=== PATIENT | female | born 1935 | race Caucasian/White ===

== ENCOUNTER 2020-09-09 10:25 | Inpatient (IN) | payer MEDICARE, BC ==
[~2020-09-09] VITALS: Ht 165.1 cm; Wt 75.0 kg
[2020-09-09 11:03] VITALS: BP 177/74
[2020-09-09 11:05] LABS: BASOPHILS 0.9 % (0-2); EOSINOPHILS 1.6 % (0-7); HEMATOCRIT 44.3 % (36.0-48.0); HEMOGLOBIN 14.7 g/dL (12-16); LYMPHOCYTES 23.5 % (15-50); MCH 29.9 pg (26.0-34.0); MCHC 33.2 g/dL (31.0-37.0); MCV 89.9 fL (80.0-100.0); MEAN PLATELET VOLUME 9.3 fL (7.4-10.4); MONOCYTES 9.4 % (2-11); NEUTROPHILS 64.6 % (40-80); PLATELET COUNT 216 10x3/uL (130-400); RBC 4.93 10x6/uL (4.00-5.40); RDW 13.8 % (11.5-14.5); WBC 7.1 10x3/uL (4.8-10.8)
[2020-09-09 11:11] LABS: CALC OSMOLALITY 292 mosm/kg (275-300); CALCIUM 9.5 mg/dL (8.5-10.1); CARBON DIOXIDE 26.6 mmol/L (21.0-32.0); CHLORIDE - SERUM 109 mmol/L (98-107); CREATININE - SERUM 1.2 mg/dL (0.6-1.3); GLUCOSE 103 mg/dL (74-106); SODIUM 145 mmol/L (136-145); UREA NITROGEN 25 mg/dL (7-18); eGFR NON AFRICAN AMERICAN 45 mL/min (90-120)
[2020-09-09 11:13] LABS: APTT 24.6 SECONDS (22.8-39.4); INR 1.04 (0.85-1.17); PROTIME 12.5 SECONDS (11.6-15.0)
[2020-09-09 11:28] LABS: ALBUMIN 3.6 g/dL (3.4-5.0); ALKALINE PHOSPHATASE 74 U/L (30-120); ALT (SGPT) 25 U/L (10-68); BILIRUBIN - TOTAL 0.52 mg/dL (0.2-1.3); CKMB 0.8 U/L (0.0-3.6); CREATINE KINASE 79 UL (21-215); PROTEIN - SERUM 6.9 g/dL (6.4-8.2); THYROID STIMULATING HORMONE 1.13 uIU/mL (0.36-3.74); TROPONIN-I < 0.017 ng/mL (0.000-0.060)
[2020-09-09 11:55] LABS: CHOL - HDL RATIO 4.4 ratio (2.3-4.1); LDL-HDL RATIO 2.9 ratio (1.5-3.5)
--- NOTE | 2020-09-09 13:04 | NUR ---
DR. CANCHOLA PAGED FOR ANTI-ANXIETY MEDICATION FOR MRI. ATIVAN 1MG IV ORDERED.
--- NOTE | 2020-09-09 13:46 | NUR ---
TO MRI VIA STRETCHER.
--- NOTE | 2020-09-09 15:32 | NUR ---
DR. ANGELES AT BEDSIDE.
--- NOTE | 2020-09-09 15:53 | NUR ---
PT AND FAMILY TO ROOM. SITUATED COMFORTABLY. ORIENTED TO ROOM AND UNIT. DENIES ANY NEEDS AT THIS TIME. BED IN LOWEST POSITION, BED RAILS X2, CALL LIGHT WITHIN REAcH. WILL CONTINUE POC.
[2020-09-09 16:35] VITALS: BP 164/65; Ht 165.1 cm; Wt 75.0 kg
--- NOTE | 2020-09-09 17:54 | NUR ---
SUPINE IN BED, EYES CLOSED. BREATHING EVEN AND NON LABORED. NO S/S OF DISTRESS NOTED AT THIS TIME. BED IN LOWEST POSITION, BED RAILS X2, CALL LIGHT WITHIN REACH, REINALDO MAT ON BED. FAMILY AT BEDSIDE. WILL CONTINUE POC.
[2020-09-09 18:15] LABS: CKMB 0.8 U/L (0.0-3.6); CREATINE KINASE 70 UL (21-215)
[2020-09-09 18:17] LABS: TROPONIN-I < 0.017 ng/mL (0.000-0.060)
[2020-09-09 21:03] VITALS: BP 159/74
[2020-09-10] VITALS (7 sets, daily range): BP systolic 128–173; BP diastolic 50–69
[2020-09-10 01:51] LABS: CKMB 0.7 U/L (0.0-3.6); CREATINE KINASE 61 UL (21-215); TROPONIN-I < 0.017 ng/mL (0.000-0.060)
--- NOTE | 2020-09-10 02:57 | NUR ---
I have reviewed this patient and I concur with the Shift Assessment completed by the Licensed Practical Nurse today this shift.
[2020-09-10] MEDS ORDERED: LEXAPRO20 MG PO (03:18)
[2020-09-10 06:57] LABS: BASOPHILS 0.9 % (0-2); EOSINOPHILS 2.7 % (0-7); HEMATOCRIT 39.2 % (36.0-48.0); HEMOGLOBIN 13.1 g/dL (12-16); LYMPHOCYTES 30.4 % (15-50); MCH 30.1 pg (26.0-34.0); MCHC 33.5 g/dL (31.0-37.0); MCV 89.7 fL (80.0-100.0); MEAN PLATELET VOLUME 9.5 fL (7.4-10.4); PLATELET COUNT 195 10x3/uL (130-400); RBC 4.37 10x6/uL (4.00-5.40); RDW 13.7 % (11.5-14.5); WBC 6.2 10x3/uL (4.8-10.8)
[2020-09-10 07:14] LABS: ALBUMIN 3.1 g/dL (3.4-5.0); ANION GAP 10.7 mmol/L (8-16); BILIRUBIN - TOTAL 0.51 mg/dL (0.2-1.3); CALCIUM 9.3 mg/dL (8.5-10.1); CARBON DIOXIDE 26.2 mmol/L (21.0-32.0); CREATININE - SERUM 1.1 mg/dL (0.6-1.3); POTASSIUM - SERUM 3.9 mmol/L (3.5-5.1)
--- NOTE | 2020-09-10 10:15 | NUR ---
ADMINISTERED SCHEDULED MEDICATIONS, PATIENT IS WALKING WITH PHYSICAL THERAPY AT THIS TIME, SPOUSE AT BEDSIDE, CL IN REACH CONTINUE WITH PLAN OF CARE
--- NOTE | 2020-09-10 14:34 | NUR ---
PATIENT DAUGHTER AND PATIENT INQUIRED ON PATIENT HOME MEDICATIONS AND WHEN THY WILL BE RESTARTED, PAT MED REC NOT COMPLETED, ASKED PATIENT WHAT SHE TAKES, BOTH PATIENT AND DAUGHTER ARE ABLE TO GIVE A FEW MEDICATIONS BUT UNABLE TO TELL ME THE DOSES, CALLED THE PHARMACY TO GET DOSESAND PHARMACY IS CLOSED TODAY AND FRIDAY, UNABLE TO OBTAIN. CONTINUE WITH PLAN OF CARE
[2020-09-10] MEDS ORDERED: COZAAR100 MG PO (16:12)
[2020-09-10] MEDS ORDERED: LIPITOR20 MG PO (16:14)
[2020-09-10] MEDS ORDERED: LIPITOR40 MG PO (16:14)
--- NOTE | 2020-09-10 18:00 | NUR ---
I have reviewed this patient and I concur with the Shift Assessment completed by the Licensed Practical Nurse today this shift.
[2020-09-11] VITALS: BP 141/56
--- NOTE | 2020-09-11 01:45 | NUR ---
PATIENT DENIES PAIN, VOICED NO CONCERNS, SHE IS CURRENTLY RESTING IN BED WITH HER EYES CLOSED.
[2020-09-11 04:00] VITALS: BP 145/45
--- NOTE | 2020-09-11 07:15 | NUR ---
REC'D IN BED WITH EYES CLOSED EASILY TO AROUSED WHEN NAME IS CALLED. RESP EVEN AND UNLABORED WITH NO DISTRESS NOTED. CAN EXPRESS NEEDS AND WANTS. NO C/O NOTED OR VOICED AT THIS TIME. ASSESSMENT COMPLETED. C/L IN REACH AT BEDSIDE.
[2020-09-11 10:02] VITALS: BP 160/55
--- NOTE | 2020-09-11 11:06 | NUR ---
I have reviewed this patient and I concur with the Shift Assessment completed by the Licensed Practical Nurse today this shift.
[2020-09-11 11:13] LABS: BASOPHILS 1.2 % (0-2); EOSINOPHILS 2.7 % (0-7); HEMATOCRIT 41.2 % (36.0-48.0); HEMOGLOBIN 13.4 g/dL (12-16); LYMPHOCYTES 23.9 % (15-50); MCH 29.5 pg (26.0-34.0); MCHC 32.6 g/dL (31.0-37.0); MCV 90.5 fL (80.0-100.0); MEAN PLATELET VOLUME 9.1 fL (7.4-10.4); MONOCYTES 9.1 % (2-11); NEUTROPHILS 63.1 % (40-80); PLATELET COUNT 205 10x3/uL (130-400); RBC 4.56 10x6/uL (4.00-5.40); RDW 13.8 % (11.5-14.5); WBC 6.5 10x3/uL (4.8-10.8)
[2020-09-11 11:27] LABS: ALBUMIN 3.3 g/dL (3.4-5.0); ANION GAP 11.1 mmol/L (8-16); BILIRUBIN - TOTAL 0.41 mg/dL (0.2-1.3); CALCIUM 9.3 mg/dL (8.5-10.1); CARBON DIOXIDE 26.8 mmol/L (21.0-32.0); CREATININE - SERUM 1.2 mg/dL (0.6-1.3); POTASSIUM - SERUM 3.9 mmol/L (3.5-5.1); PROTEIN - SERUM 6.4 g/dL (6.4-8.2)
[2020-09-11 12:26] LABS: PLATELET ESTIMATE NORMAL
--- NOTE | 2020-09-11 13:17 | NUR ---
THANK YOU FOR THIS REFERRAL. NOTIFIED [employer] VIA VOICEMAIL THAT PRESCREEN IS IN PROCESS. -VANNESSA DOE LPN, CLINICAL LIAISON
[2020-09-11 13:32] VITALS: BP 129/57
[2020-09-11 20:00] VITALS: BP 144/61
--- NOTE | 2020-09-12 02:42 | NUR ---
PATIENT AWAKENS WHEN YOU CALL HER NAME, SHE DENIES PAIN, VOICED NO CONCERNS, SHE IS CURRENTLY RSTING IN BED WITH HER EYES CLOSED.
[2020-09-12 04:00] VITALS: BP 145/54
[2020-09-12 06:31] LABS: BASOPHILS 0.9 % (0-2); EOSINOPHILS 3.4 % (0-7); HEMATOCRIT 39.8 % (36.0-48.0); HEMOGLOBIN 13.2 g/dL (12-16); LYMPHOCYTES 30.3 % (15-50); MCHC 33.3 g/dL (31.0-37.0); MCV 90.3 fL (80.0-100.0); MEAN PLATELET VOLUME 9.8 fL (7.4-10.4); MONOCYTES 8.1 % (2-11); NEUTROPHILS 57.3 % (40-80); PLATELET COUNT 202 10x3/uL (130-400); RBC 4.41 10x6/uL (4.00-5.40); RDW 13.7 % (11.5-14.5); WBC 7.2 10x3/uL (4.8-10.8)
[2020-09-12 06:48] LABS: ALBUMIN 3.1 g/dL (3.4-5.0); ANION GAP 10.4 mmol/L (8-16); BILIRUBIN - TOTAL 0.29 mg/dL (0.2-1.3); CALCIUM 9.3 mg/dL (8.5-10.1); CARBON DIOXIDE 26.6 mmol/L (21.0-32.0); CREATININE - SERUM 1.3 mg/dL (0.6-1.3); PROTEIN - SERUM 6.2 g/dL (6.4-8.2)
--- NOTE | 2020-09-12 08:38 | NUR ---
I AM UNSURE OF WHAT THE CURRENT STATUS IS WITH THIS PATIENT. THERE IS A CHART PUT TOGETHER FOR ADMISSION TO INPATIENT REHAB, YET SHE IS STILL ON THE ACUTE FLOOR. 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 LAUREN SAVAGE RN CLINICAL LIAISON, INPATIENT REHAB.
[2020-09-12 08:49] VITALS: BP 169/53
[2020-09-12 11:56] VITALS: BP 161/97
[2020-09-12] MEDS ORDERED: PLAVIX75 MG PO (12:59)
[2020-09-12] MEDS ORDERED: ASPIRIN81 MG PO (12:59)
--- NOTE | 2020-09-13 14:27 | EC ---
PATIENT:CARLY KIM DATE OF SERVICE: 09/10/20 SEX: F MEDICAL RECORD: [id number] DATE OF : 35 LOCATION:[id number] AGE OF PATIENT: 84 ADMISSION DATE: 09/10/20 REFERRING PHYSICIAN: INTERPRETING PHYSICIAN: SHELBIE ESCOBAR MD ECHOCARDIOGRAM REPORT ECHO CHARGES 4 ECHO COMPLETE Date: 09/10/20 CLINICAL DIAGNOSIS: CVA VS TIA ASSESS FOR CLOTS ECHOCARDIOGRAPHIC MEASUREMENTS (adult normal given) AC root (d.<3.7cm) 3.1 cm LV Septum d (<1.2 cm> 1.2 cm Valve Excursion 1.3 cm LV Septum (systole) 1.5 cm Left Atria (s.<4.0cm> 3.5 cm LVPW d(<1.2cm) 1.4 cm RV (d.<2.3cm) 3.3 cm LVPW (sytole) 1.7 cm LV diastole(<5.6CM) 5.1 cm MV E-F(>70mm/sec) cm LV systole 3.3 cm LVOT Diameter 1.7 cm MV exc.(>10mm) 1.61 cm Est.ejection fraction (50-75%) % DOPPLER: LVIT cm/sec A 108.0cm/sec E 76.0 cm/sec LA cm/sec RVSP 28 mmHg LVOT 117 cm/sec AOP1/2T 653 m/s Asc. Ao 147 cm/sec RVOT 122 cm/sec RA cm/sec PA 148 cm/sec AV Gradient Peak 8.59 mmHg AV Mean 4.43 mmHg AV Area 1.7 cm MV Gradient Peak 5.77 mmHg MV Mean 1.73 mmHg MV Area cm COMMENTS: [employer] Truck Driver: 2 AV ORR Visitor Services Coordinator: 3 Dr. Parry TAPE# PACS Pericardial Effusion N DATE OF SERVICE: Adequate 2D, color flow imaging, spectral Doppler, and M-Mode. FINDINGS: LVH is present. Mild LV internal dimensions are normal. Wall motion is normal. EF is greater than or equal to 55%. Aortic valve is tricuspid. No evidence of stenosis by Doppler interrogation. There is mild AI by color flow imaging. Left atrium is normal at 3.5 cm. Mitral valve shows no prolapse. Trace MR. Right-sided chambers are grossly normal. Mild TR. No evidence of thrombus in all 4 cardiac chambers. ECHOCARDIOGRAM REPORT [id number] JULIOJEREMIAS NathJOANA Caballero TRANSINT:[id number] Voice Confirmation ID: [id number] DOCUMENT ID: [id number] SHELBIE ESCOBAR MD at 1427 CC: [id number] DICTATION DATE: 09/11/20924 COMPLEX CASE MANAGER: 09/11/20 1027 DIS IN 09/12/20 [place] [id number]
== END 2020-09-12 13:35 | DRG 65 ==
LOC: D.ER 10:25 → D.MS 11:27 → OBSVTIME 11:27 → D.MS 13:54
PROVIDERS: Emergency Medicine; Family Medicine; ADMIT Family Medicine; ATTEND Family Medicine
DX: I63.22 Cerebral infarction due to unspecified occlusion or stenosis of basilar artery (principal); G81.94 Hemiplegia, unspecified affecting left nondominant side; G72.81 Critical illness myopathy; R47.1 Dysarthria and anarthria; R42 Dizziness and giddiness; R47.01 Aphasia; F41.9 Anxiety disorder, unspecified; D32.0 Benign neoplasm of cerebral meninges; G31.1 Senile degeneration of brain, not elsewhere classified

== ENCOUNTER 2020-09-12 14:26 | Inpatient (IN) | payer MEDICARE, BC ==
[~2020-09-12] VITALS: Ht 165.1 cm; Wt 74.8 kg
[~2020-09-12 14:26] MED LIST: ASPIRIN81 MG PO; COZAAR100 MG PO; LEXAPRO20 MG PO; LIPITOR20 MG PO; LIPITOR40 MG PO; PLAVIX75 MG PO
--- NOTE | 2020-09-12 14:44 | NUR ---
PATIENT ADMITTED TO [facility] FROM ACUTE FLOOR. HER PCP IS DR. MANCUSO. AT THIS TIME DISCHARGE PLANS ARE UNCERTAIN. WILL CONTINUE TO FOLLOW WITH PATIENT AND WILL ASSIST WITH NEEDS.
[2020-09-12 14:58] VITALS: BP 181/65; BMI 27.5
--- NOTE | 2020-09-12 17:56 | NUR ---
ADMIT TO REHAB FROM ACUTE CARE. IS CONFUSED BUT COOPERATIVE. DENIES PAIN.
--- NOTE | 2020-09-12 19:05 | NUR ---
ROUNDS MADE, PT WATCHING TV, INFORMED PT THAT I WILL BE BACK SHORTLY, DENIES NEEDS AT THIS TIME
--- NOTE | 2020-09-12 20:33 | NUR ---
PT WATCHING, DENIES NEEDS AT THIS TIME, FALL PRECAUTIONS IN PLACE
--- NOTE | 2020-09-12 21:20 | NUR ---
ASSESSMENT PER FLOW SHEET, PT UP TO BR WITH ASSISTANCE PER TYRESE PATTERSON RN, PT VOIDED, CLEAN GOWN APPLIED, PT BACK TO BED, ASSESSMENT PER FLOW SHEET, PT DENIES NEEDS OR PAIN AT THIS TIME, FALL PRECAUTIONS IN PLACE
[2020-09-12 21:31] VITALS: BP 161/64
--- NOTE | 2020-09-12 22:38 | NUR ---
PT RESTING WITH EYES CLOSED, RESP QUIET, NO DISTRESS NOTED, LEFT UNDISTURBED AT THIS TIME
--- NOTE | 2020-09-13 00:18 | NUR ---
PT RESTING WITH EYES CLOSED, RESP QUIET, NO DISTRESS NOTED, LEFT UNDISTURBED AT THIS TIME
--- NOTE | 2020-09-13 02:30 | NUR ---
PT RESTING WITH EYES CLOSED, RESP QUIET, NO DISTRESS NOTED, LEFT UNDISTURBED AT THIS TIME
--- NOTE | 2020-09-13 04:33 | NUR ---
PT LONGWALL SHEARER OPERATOR LIGHT, PT UP TO BR PER TYRESE PATTERSON RN, PT VOIDED WITH NO DIFFICULTY, BACK TO BED, FALL PRECAUTIONS IN PLACE
[2020-09-13 07:24] VITALS: BP 170/58
[2020-09-13 13:22] VITALS: Ht 165.1 cm; Wt 74.8 kg
--- NOTE | 2020-09-13 15:42 | NUR ---
CARE TEAM MEETING: PATIENT IS NEW TO THE UNIT AND WILL BE RA AT NEXT MEETING. WILL CONTINUE TO FOLLOW WITH PATIENT.
[2020-09-13 20:17] VITALS: BP 147/55
--- NOTE | 2020-09-13 22:34 | NUR ---
UP IN CHAIR EARLY IN SHIFT, TANA WELL, TRANSFER X1 ASSIST, CONT TO MONITOR ORIENTATION
--- NOTE | 2020-09-14 03:30 | NUR ---
UP TO BATHROOM, GAIT UNSTEADY, CONT TO MONITOR
[2020-09-14 08:07] VITALS: BP 106/49
--- NOTE | 2020-09-14 19:44 | RHP ---
PATIENT: CARLY KIM MEDICAL RECORD: [id number] ACCOUNT: [id number] LOCATION:[facility]1113 : 35 ADMISSION DATE: 09/12/20 REHABILITATION HISTORY AND PHYSICAL EXAMINATION POST ADMISSION PHYSICIAN EXAMINATION ADMITTING DIAGNOSIS: Cerebrovascular accident. 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 She presented to the ED on 09/09 at the urging of her hairdresser after she presented for hair appointment with complaints of 2-3 day history of headache, dizziness, left-sided weakness and difficulty speaking. The patient had some nausea and vomiting associated with this as well. MRI was conclusive for a CVA. 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 Prior to 09/09, she lived at home alone with her and was functioning independently at home without the use of any type of mortgage loan assistant devices. The daughter does report that she did fall over a month ago, tripping over her sister's dog. The patient reports her shoulder has been somewhat sore since then. She says she has had no other falls. She does complain of dizziness so often. 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 The patient wears glasses and is hard of hearing. Physical therapy reports that the patient's balance is poor and that she is very high risk for fall and has had some confusion. Physical therapy also recommends inpatient rehab. Barriers to her discharge include safety awareness, the fact that she is a high fall risk. She has got significant ADL deficits. She is eager to participate in therapy and hopefully return back to home. 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 PAST MEDICAL HISTORY: Significant for anxiety, postmenopause. PAST SURGICAL HISTORY: Includes hysterectomy, breast reduction. ALLERGIES: SULFA. CURRENT MEDICATIONS: Include Cozaar 100 mg daily, Lexapro 10 mg daily, Plavix 75 mg daily, atorvastatin 20 mg daily, aspirin chewable 81 mg daily, and MiraLax 17 grams in 8 ounces of water once daily. HABITS: No alcohol or tobacco use. FAMILY HISTORY: Noncontributory. SOCIAL HISTORY: The patient hopes to return back home and get back to her prior level of functioning. REVIEW OF SYSTEMS: GENERAL: She does complain of weakness, especially on the left side. HEENT: Denies cold, cough, congestion. CARDIOVASCULAR: Denies any chest pain. HISTORY AND PHYSICAL [id number] JULIOCARLY Nath PHYSICAL EXAMINATION: VITAL SIGNS: Stable, afebrile. GENERAL: Elderly female in no acute distress, alert upon exam. HEENT: Normocephalic and atraumatic. Mucosa moist. NECK: Supple with no lymphadenopathy. LUNGS: Clear in upper ny. HEART: Regular rate and rhythm. She does have a holosystolic murmur. ABDOMEN: Soft, benign, nondistended. Positive bowel sounds times 4. EXTREMITIES: No clubbing, cyanosis or edema. NEUROLOGIC: Consistent with CVA with some noted problems with speech and also weakness. LABORATORY DATA: Her white count 7.2, H&H of 13 and 39, and platelet count of 202. Her chemistry shows sodium 143, potassium 4.0, BUN and creatinine of 28 and 1.3 and blood sugar is noted to be 104. ASSESSMENT: This is an 84-year-old female patient admitted to rehab with a working diagnosis of cerebrovascular accident. The patient has potential to make improvements. We instituted the following multidisciplinary therapies including, but not limited to physical, occupational, respiratory, speech, nutritional services, prosthetics and orthotics. Given her complex medical condition and risks for more complications, rehabilitation services cannot be provided at a low level of care such as intermediate facility. PLAN: Admit to [facility] for inpatient therapy to include the following disciplines: A. Physical therapy to improve gait, all transfer skills and bed mobility to a modified independent level. B. Occupational therapy to improve activities of daily living. C. Case management to help with discharge planning and placement options. D. Nutrition to assist with nutritional needs. E. Rehabilitation nursing to assist in monitoring the patient's underlying medical conditions and to assist with any type of bowel or bladder management. 1. The patient's current medication and medical care will be continued. 2. Will be placed on standard fall precautions. 3. The patient's estimated length of stay approximately 7-10 days. We will discuss this patient during care team staff today at noon. TRANSINT:[id number] Voice Confirmation ID: [id number] DOCUMENT ID: [id number] PAVEL notes whether there has been none or any medical/functional change since admission: - No change since preadmission screen. PAVEL attests patient continues to be appropriate for IRF: - Continues to be appropriate. HISTORY AND PHYSICAL [id number] CARLY KIM,MADISYN JOSE MD at 1944 CC: [id number] DICTATION DATE: 09/13/20 1047 TRIMMING CASER: 09/13/20 1114 ADM IN [place] [id number] [place] [address]
[2020-09-14 19:57] VITALS: BP 134/56
--- NOTE | 2020-09-14 20:13 | NUR ---
AWAKE AND ALERT. RESTING IN BED TEXTING ON PHONE. SOME CONFUSION NOTED. RESPIRATIONS UNLABORED. SQUAD LEADER ON. NO DISTRESS NOTED. CALL LIGHT IN REACH.
--- NOTE | 2020-09-15 05:38 | NUR ---
QUIET HOURS. NO ACUTE CHANGES IN CONDITION THIS SHIFT. RESTING IN BED WITH NO DISTRESS NOTED.
[2020-09-15 07:11] LABS: BASOPHILS 0.7 % (0-2); EOSINOPHILS 3.2 % (0-7); HEMATOCRIT 38.9 % (36.0-48.0); HEMOGLOBIN 12.9 g/dL (12-16); LYMPHOCYTES 27.4 % (15-50); MCHC 33.2 g/dL (31.0-37.0); MCV 90.5 fL (80.0-100.0); MEAN PLATELET VOLUME 9.9 fL (7.4-10.4); MONOCYTES 9.4 % (2-11); NEUTROPHILS 59.3 % (40-80); PLATELET COUNT 195 10x3/uL (130-400); RDW 13.6 % (11.5-14.5); WBC 7.5 10x3/uL (4.8-10.8)
[2020-09-15 07:17] LABS: ANION GAP 11.6 mmol/L (8-16); CALCIUM 9.3 mg/dL (8.5-10.1); CARBON DIOXIDE 24.6 mmol/L (21.0-32.0); CREATININE - SERUM 1.3 mg/dL (0.6-1.3); POTASSIUM - SERUM 4.2 mmol/L (3.5-5.1)
[2020-09-15 08:57] VITALS: BP 155/79
--- NOTE | 2020-09-15 15:39 | NUR ---
PATIENT DISCHARGING HOME WITH FAMILY IN AM . [facility] WILL PROVIDE THERAPY AT HOME. NO NEW DME NEEDED AT THIS TIME.PRESLEY SIGNED, IMM SERVED AND EXPLAINED, ONE GIVEN TO PATIENT AND ONE FILED IN CHART. DR. MANCUSO/JEANETTE 09/22/20 @ 2:15, DR. MERLINE ANGELES OFFICE TO CALL PATIENT WITH AN APPOINTMENT. COMPARE DATA REVIEWED, PATIENT AND DAUGHTER VOICED UNDERSTANDING. DISCHARGE INSTRUCTIONS FAXED TO PCP, HOME HEALTH AND REVIEWED WITH PATIENT AND DAUGHTER.
--- NOTE | 2020-09-15 15:53 | NUR ---
SITTING IN WC IN ROOM. BED AND CHAIR ALARM IN USE. SHE REMAINS VERY CONFUSED. VERY POOR RECALL FOR RECENT AND LONG TIME EVENTS. PLEASANT AND COOPERATIVE TO SIMPLE REQUESTS. CALL LIGHT IN REACH
--- NOTE | 2020-09-15 20:00 | NUR ---
PATIENT RECEIVED SITTING UP IN WHEELCHAIR. ASSESSMENT & VITAL SIGNS DONE. NO C/O PAIN OR DISTRESS. PLEASANTLY CONFUSED. ALARM ON WHEELCHAIR & LOW BED ON. CALL LIGHT WITHIN REACH, PATIENT REMINDED TO USE FOR HELP. WILL CONTINUE TO MONITOR.
[2020-09-15 20:07] VITALS: BP 137/51
--- NOTE | 2020-09-16 02:30 | NUR ---
PATIENT ALARM SOUNDING. PATIENT TRANSFERRED TO WHEELCHAIR BY SELF. NIGHT TECH IN ROOM, TURED ALARM OFF. PATIENT HAD VOID ONLY. RETURNED TO LOW BED WITH TECH. ALARM ON. BED LOW. WILL CONTINUE TO MONITOR.
--- NOTE | 2020-09-16 05:24 | NUR ---
I have reviewed this patient and I concur with the Shift Assessment completed by the Licensed Practical Nurse today this shift.
[2020-09-16 07:00] VITALS: BP 102/54
--- NOTE | 2020-09-16 08:00 | NUR ---
PT RESTING IN BED WITH EYES OPEN CALL LIGHT IN REACH WILL MONITER
--- NOTE | 2020-09-16 12:00 | NUR ---
PT DISCHARGED TO HOME VIA WHEELCHAIR WITH DAUGHTER AND DISCHARGE SUMMARY AND MEDS REVIEWED WITH PT. ALL MEDS CALLED TO [facility] PT TOLERATED WELL
== END 2020-09-16 14:57 | disposition home health service (06) | DRG 56 ==
LOC: D.REHAB 14:26
PROVIDERS: ADMIT Emergency Medicine; ATTEND Emergency Medicine
DX: I69.354 Hemiplegia and hemiparesis following cerebral infarction affecting left non-dominant side (principal); I63.22 Cerebral infarction due to unspecified occlusion or stenosis of basilar artery; R47.01 Aphasia; G72.81 Critical illness myopathy; I69.320 Aphasia following cerebral infarction; D32.9 Benign neoplasm of meninges, unspecified; R42 Dizziness and giddiness; F41.9 Anxiety disorder, unspecified; G47.00 Insomnia, unspecified